=== PATIENT | male | born 1975 | race Native Hawaiian/Other Pacific Islander ===

== ENCOUNTER 2017-03-08 21:27 | Emergency (ER) | payer OTHER ==
[~2017-03-08] VITALS: Ht 165.1 cm; Wt 86.2 kg
[2017-03-08 22:02] LABS: PLATELET COUNT 413 K/uL (142-355)
[2017-03-08 22:59] VITALS: BP 126/90; TEMP 97.8
== END 2017-03-08 22:59 | disposition home or self-care (01) ==
LOC: ED 21:27
DX: N20.1 Calculus of ureter (principal); N20.0 Calculus of kidney; K38.1 Appendicular concretions
CPT/HCPCS: 36415; 81000; 85027; 99283